=== PATIENT | female | born 1985 | race Caucasian/White ===

== ENCOUNTER 2022-01-25 00:11 | Emergency (ER) | payer BC ==
[~2022-01-25] VITALS: Ht 160 cm; Wt 54.4 kg
--- NOTE | 2022-01-25 00:30 | NUR ---
Dr. Archer at bedside for MSE.
--- NOTE | 2022-01-25 01:55 | NUR ---
Patient discharged to home in stable condition. Written and verbal after care instructions given. Patient verbalizes understanding of instructions. Stressed follow up or return to ER for worsening s/s. Patient out of ER with steady gait, no acute signs of distress, VSS, all belongings taken, provided with copies of lab results.
[2022-01-25 01:56] VITALS: BP 114/74
== END 2022-01-25 01:56 | disposition home or self-care (01) ==
LOC: ER 00:15
DX: J02.9 Acute pharyngitis, unspecified (principal); Z20.822 Contact with and (suspected) exposure to COVID-19; Z87.891 Personal history of nicotine dependence
CPT/HCPCS: 86403; 87070; A4663

== ENCOUNTER 2024-11-04 09:33 | Emergency (ER) | payer BC ==
[~2024-11-04] VITALS: Ht 160 cm; Wt 54.4 kg
[2024-11-04 10:37] VITALS: BP 109/70; TEMP 97.5; O2SAT 98
== END 2024-11-04 10:38 | disposition home or self-care (01) ==
LOC: ER 09:33
DX: S90.121A Contusion of right lesser toe(s) without damage to nail, initial encounter (principal); D50.9 Iron deficiency anemia, unspecified; F17.200 Nicotine dependence, unspecified, uncomplicated; W22.8XXA Striking against or struck by other objects, initial encounter; Y93.89 Activity, other specified; Y92.89 Other specified places as the place of occurrence of the external cause; Y99.8 Other external cause status
CPT/HCPCS: 73660; A4606; A4663